=== PATIENT | male | born 1950 | race Two or more races ===

== ENCOUNTER 2016-06-10 09:50 | Outpatient (RCR) | payer OTHER | END 2016-06-30 | disposition home or self-care (01) | LOC: PTY 09:50 | DX: M54.16 Radiculopathy, lumbar region (principal); G89.4 Chronic pain syndrome | CPT/HCPCS: 97110; 97161; G0283 ==

== ENCOUNTER 2016-07-01 10:50 | Outpatient (RCR) | payer OTHER | END 2016-07-31 | disposition home or self-care (01) | LOC: PTY 10:50 | DX: M54.16 Radiculopathy, lumbar region (principal); G89.4 Chronic pain syndrome | CPT/HCPCS: 97110; G0283 ==